=== PATIENT | female | born 1950 | race African-American/Black ===

== ENCOUNTER → 2017-02-04 | Outpatient (CLI) | payer MEDICARE, MEDICAID | LOC: YCFC.O 12:30 | PROVIDERS: ATTEND Anesthesiology Pain Medicine | DX: Z79.891 Long term (current) use of opiate analgesic (principal) ==

== ENCOUNTER 2017-07-30 05:33 | Inpatient (IN) | payer MEDICARE, MEDICAID ==
--- NOTE | 2017-07-29 11:26 | HP ---
CHIEF COMPLAINT: Right knee pain. HISTORY OF PRESENT ILLNESS: Ms. Green is a 67-year-old female with a history of right knee pain that has been going on for years. She has had multiple injections of both steroid and Synvisc and oral medicine, however, has failed to gain relief. Because of her ongoing pain and failure of relief with conservative measures, she has requested operative intervention. After discussing the risks, benefits and alternatives to that, the patient has given informed consent. PAST SURGICAL HISTORY: 1. Tubal ligation. MEDICATIONS: 1. Amlodipine. 2. Buspirone. 3. Clopidogrel. 4. Dexilant. 5. Duloxetine. 6. Gabapentin. 7. Levothyroxine. 8. [place]. ALLERGIES: ASPIRIN. CODE STATUS: Full code. IMMUNIZATIONS: Up to date. SOCIAL HISTORY: The patient does not drink or use any illicit drugs. She does smoke on a daily basis. FAMILY HISTORY: None pertinent to today's complaint. REVIEW OF SYSTEMS: Negative except as indicated in the History of Present Illness. PHYSICAL EXAMINATION: VITAL SIGNS: Blood pressure 154/81. Pulse 80. Height 5'9". Weight 170 pounds. MENTAL STATUS: The patient is awake, alert, and is able to give a good history and participate in the physical. The patient is oriented to person, place and time. SKIN: Normal tone and turgor. HEENT: Normocephalic, atraumatic. Pupils equal, round and reactive. Mucosal membranes are moist. NECK: Normal range of motion. No thyromegaly, no lymphadenopathy. CHEST: Normal respiratory excursion. CARDIAC: Regular rate and rhythm. No murmurs, rubs or gallops. MUSCULOSKELETAL: The bilateral upper extremities show full active range of motion without significant pain. She has intact sensation in the extremities and they are warm and well perfused. She has no deformities. Strength is 5/5. The left lower extremity shows pain along the medial and lateral borders of the knee. She maintains full range of motion of the hip and range of motion of the knee is from full extension with flexion to about 120 degrees with crepitus throughout. The right side shows similar findings with severe pain to palpation. She has intact sensation throughout. It is warm and well perfused. Strength is 5/5. She has crepitus throughout her range of motion from full extension to about 120 degrees. IMAGING: X-rays show advanced arthritis. ASSESSMENT: 1. Osteoarthritis. PLAN: The plan at this point is for total knee arthroplasty. We have discussed the risks, benefits, and alternatives to that and the patient has given informed consent. #[id number] [facility]
[2017-07-30] MEDS ORDERED: LACTATED RINGERS 1,000 ML ONE ×3 (07:32→13:23)
[2017-07-30] MEDS ORDERED: TRANEXAMIC ACID 1,000 MG/10 ML VIAL ONE ×2 (07:32→07:50)
[2017-07-30] MEDS ORDERED: SODIUM CHL 0.9% 100ML MINI-BAG 100 ML IVPB ONE (07:32)
[2017-07-30] MEDS ORDERED: VANCOMYCIN HCL INJ 1,000 MG VIAL IVPB ONE ×2 (07:32→19:38)
[2017-07-30] MEDS ORDERED: ceFAZolin SODIUM 1 GM VIAL ONE ×2 (07:32→08:33)
[2017-07-30] MEDS ORDERED: SODIUM CHLORIDE 0.9% 250ML 250 ML ONE ×2 (07:33→19:36)
[2017-07-30] MEDS ORDERED: SODIUM CHLORIDE 0.9% 100ML 100 ML IVPB ONE (07:50)
[2017-07-30] MEDS ORDERED: LIDOCAINE 2 % GEL 5 ML TUBE TOP ONE (08:49)
[2017-07-30] MEDS ORDERED: PROMETHAZINE HCL INJ 12.5 MG in SODIUM CHLORIDE 0.9% 50ML 50 ML IVPB PRN (09:03)
[2017-07-30] MEDS ORDERED: TEMAZEPAM 15 MG CAP PO PRN (09:03)
[2017-07-30] MEDS ORDERED: ONDANSETRON INJ 4 MG/2 ML VIAL IV PRN (09:03)
[2017-07-30] MEDS ORDERED: TRANEXAMIC ACID INJ 1,000 MG in SODIUM CHLORIDE 0.9% 100ML 100 ML IVPB ONE (09:03)
[2017-07-30] MEDS ORDERED: SODIUM CHLORIDE 0.9% (FLUSH) 10 ML SYG IV PRN (09:03)
[2017-07-30] MEDS ORDERED: ACETAMINOPHEN 500 MG TAB PO PRN (09:03)
[2017-07-30] MEDS ORDERED: NALOXONE HCL INJ 0.4 MG/ML VIAL IV PRN (09:03)
[2017-07-30] MEDS ORDERED: PROMETHAZINE HCL INJ 25 MG in SODIUM CHLORIDE 0.9% 50ML 50 ML IVPB PRN (09:03)
[2017-07-30] MEDS ORDERED: BENZOCAINE-MENTH LOZ (CEPACOL) 1 EA LOZ MT PRN (09:03)
[2017-07-30] MEDS ORDERED: BISACODYL SUPPOSITORY 10 MG PR PRN (09:03)
[2017-07-30] MEDS ORDERED: MORPHINE SULFATE INJ 10 MG/ML VIAL IV PRN (09:03)
[2017-07-30] MEDS ORDERED: ACETAMINOPHEN 325 MG TAB PO PRN (09:03)
[2017-07-30] MEDS ORDERED: ZOLPIDEM TARTRATE 5 MG TAB PO PRN (09:03)
[2017-07-30] MEDS ORDERED: MAGNESIUM HYDROXIDE 30 ML UD PO PRN (09:03)
[2017-07-30] MEDS ORDERED: ALUMINUM & MAGNESIUM HYDROXIDE 30 ML UD PO PRN (09:03)
[2017-07-30] MEDS ORDERED: MORPHINE PCA 1 MG/ML 100 ML BAG IVPB SCH (09:30)
[2017-07-30] MEDS: VANCOMYCIN HCL INJ 1,000 MG VIAL IVPB ONE ×3 (09:45→11:40)
[2017-07-30] MEDS: ceFAZolin SODIUM 1 GM VIAL ONE ×2 (10:36→11:40)
[2017-07-30] MEDS: BUPIVACAINE 0.25% W/EPI 50 ML VIAL INJ ONE ×2 (10:37→11:48)
[2017-07-30] MEDS ORDERED: fentaNYL CITRATE INJ 50 MCG/ML AMP ONE ×2 (11:35→11:55)
[2017-07-30] MEDS ORDERED: MORPHINE PCA 1 MG/ML 100 ML BAG IVPB ONE (12:12)
[2017-07-30] MEDS ORDERED: MORPHINE SULFATE INJ 10 MG/ML VIAL ONE (13:19)
--- NOTE | 2017-07-30 16:15 | PCM.CORE ---
Physician DVT/VTE - Prophylaxis Currently: Patient already on anticoagulation therapy - Nurse DVT Assessment & Total Each Risk Factor Represents 5 Points: Elective Arthtroplasty Each Risk Factor Represents 2 Points: Age 60-74 DVT Assessment Score: 7 - 5 or more Very High Risk Treatments: Early Ambulation *, Sequential Compression Device Pharmacological: Enoxaparin 30mg SQ BID
[2017-07-30] MEDS: IV SET AND CAP CHANGE INJ INJ SCH (17:08)
[2017-07-30] MEDS ORDERED: busPIRone HCL 5 MG TAB ONE ×2 (17:12→19:37)
--- NOTE | 2017-07-30 17:20 | CONS ---
SUPERVISING PHYSICIAN: Jose Roberto Carrasco MD . REASON FOR CONSULTATION: Total right knee arthroplasty. HISTORY OF PRESENT ILLNESS: Ms. Green is a 67-year-old -[place] female with a longstanding history of right knee pain that has been occurring for multiple years. She has had several attempts at conservative measures treatment including steroid injections, Synvisc, oral medications and physical therapy but has failed to gain any relief. Due to the worsening pain and failure of treatment and conservative measures, the patient requested surgical intervention. The patient had an elective right arthroplasty performed today by Dr. Jeff Kidd. The patient is seen in the postoperative state. The patient was stable and in no distress. PAST MEDICAL HISTORY: 1. Cardiovascular accident approximately 15 years previously with left-sided lower extremity weakness and some mild aphasia. 2. Dementia. 3. Hypertension. 4. Anxiety. 5. Hypothyroidism. 6. Hepatitis C, undergoing current treatment for the last 2 months. 7. Gastroesophageal reflux disease. PAST SURGICAL HISTORY: 1. Tubal ligation. 2. Cholecystectomy. MEDICATIONS: 1. Trazodone 150 mg at bedtime. 2. Allopurinol 100 mg at bedtime. 3. Gabapentin 600 mg b.i.d. 4. Duloxetine 60 mg daily. 5. Dexilant 60 mg daily. 6. Amlodipine 10 mg daily. 7. Plavix 75 mg daily. 8. Buspirone 15 mg q.i.d. 9. Synthroid 25 mcg daily. ALLERGIES: ASPIRIN. SOCIAL HISTORY: The patient is disable. She is and lives in [place], [place]. She does smoke approximately half pack cigarettes per day and has done so for well over 40 years. She denies alcohol or any illicit drug use.. FAMILY HISTORY: Remarkable for a brother who had prostate cancer and recently . Several members with hypertension, previous strokes. REVIEW OF SYSTEMS: CONSTITUTIONAL: Denies any weight loss or unintentional weight gain, malaise or fatigue. HEENT: Denies headaches, sore throats, nasal congestion. RESPIRATORY: Denies shortness of breath, cough, wheezing. CARDIOVASCULAR: Denies chest pain, palpitations or syncopal episodes. GASTROINTESTINAL: Denies abdominal pain, nausea, vomiting, diarrhea or constipation or any bowel habit changes. GENITOURINARY: Denies dysuria, hematuria, polyuria, nocturia or any other urinary symptoms. MUSCULOSKELETAL: As noted in history of present illness along with residual left-sided lower extremity weakness from previous CVA, 15 years previous. NEUROLOGICAL: As noted above, left lower extremity weakness due to previous stroke. No recent history of seizures, vision changes, headaches or syncopal episodes. PHYSICAL EXAMINATION: VITAL SIGNS: Temperature 98.7. Blood pressure 153/88. Pulse 70. Respirations 20, saturation 100% on nasal cannula at 3 liters at rest. Admission weight is 90.7 kilogram. GENERAL: The patient is resting in bed having just finished her CPM, appears to be comfortable and in no distress. She is alert and oriented. HEENT: Tympanic membranes are clear bilaterally. Oropharynx is pink and moist without any lesions. There are no lesions. NECK: Supple, non-tender with full range of motion. No jugular venous distention. CHEST: Lungs are clear to auscultation bilaterally without any rhonchi, rales, or wheezes. HEART: Regular rate and rhythm without appreciable murmurs, rubs, or gallops. ABDOMEN: Soft, non-tender, positive bowel sounds. EXTREMITIES: Right knee as a dressing in place. Pulses distally are strong with capillary refill brisk. NEUROLOGIC: She is alert and oriented x 3. Facial features were symmetrical. Extraocular movements were within normal limits. No nystagmus. She does have a mild aphasia that is at baseline status according to the . Cranial nerves II through XII are grossly intact. LABORATORY: Postoperative hemoglobin and hematocrit pending. MICROBIOLOGY: MRSA culture preliminary shows a gram positive cocci. ASSESSMENT: 1. Immediate postoperative day #0 for elective right total knee arthroplasty performed by Dr. Kidd, orthopedic surgeon. 2. Hypertension. 3. Previous in approximately 2002. 4. Dementia secondary to stroke. 5. Anxiety on medication. 7. Hypothyroidism on supplementation. 8. Hepatitis C, currently under treatment approximately 2 months into treatment plan. Her primary doctor is Dr. Mcnamara in [place], [place]. 9. Gastroesophageal reflux disease. PLAN: I will follow the patient as she progresses through her physical therapy and recovery effort under the direction of orthopedic services and physical therapy department. Will resume home medications once those have been updated and verified. She is under DVT prophylaxis as per postoperative protocol. She is being encouraged to utilize the incentive spirometry pending postoperative atelectasis as well as exercise Lowe extremities to prevent DVT. Anticipate discharge in the next 2 to 3 days as she progresses and meets her goals. Discharge planning is that they will utilize [facility] in [place], [place] once discharged. Until discharge, we will continue to monitor closely and treat appropriately. #[id number] [facility]
[2017-07-30] MEDS: NICOTINE PATCH 14 MG TD SCH (17:24)
[2017-07-30] MEDS: NON-FORMULARY MEDICATION 1 EA MIS (Buspirone Hcl [Buspirone Hcl] 15 MG) PO SCH ×2 (17:25→20:53)
[2017-07-30] MEDS ORDERED: ceFAZolin SODIUM 2 GRAMS PREMI 50 ML IVPB ONE ×2 (18:02→19:37)
[2017-07-30] MEDS: HYDROcodone 5MG/APAP 325MG 1 EA TAB PO PRN (18:05)
[2017-07-30] MEDS: ceFAZolin SODIUM 2 GRAMS PREMI 2 GM in PREMIX BAG 1 BAG IVPB SCH (18:11)
[2017-07-30] MEDS: DEX 5% W/NACL 0.45% 1000ML 1,000 ML IVS PRN (19:22)
[2017-07-30] MEDS ORDERED: GABAPENTIN 300 MG CAP ONE (19:36)
[2017-07-30] MEDS ORDERED: ENOXAPARIN SODIUM 30 MG/0.3 ML SYG SUBCU ONE (19:37)
[2017-07-30] MEDS: traMADol HCL 50 MG TAB PO PRN (19:40)
[2017-07-30] MEDS: CYCLOBENZAPRINE HCL 10 MG TAB PO PRN (19:41)
[2017-07-30] MEDS: DOCUSATE CALCIUM 240 MG CAP PO SCH (20:53)
[2017-07-30] MEDS: VANCOMYCIN HCL INJ 1,000 MG in SODIUM CHLORIDE 0.9% 250ML 250 ML IVPB SCH (20:55)
[2017-07-30] MEDS: ALLOPURINOL 100 MG TAB PO SCH (20:55)
[2017-07-30] MEDS ORDERED: NON-FORMULARY MEDICATION 1 EA MIS (Gabapentin [Gabapentin] 600 MG) PO SCH (21:00)
[2017-07-30] MEDS: MORPHINE SULFATE INJ 10 MG/ML VIAL IM PRN (21:50)
[2017-07-31] MEDS: ENOXAPARIN SODIUM 30 MG/0.3 ML SYG SUBCU SCH ×2 (00:44→14:55)
[2017-07-31] MEDS: ceFAZolin SODIUM 2 GRAMS PREMI 2 GM in PREMIX BAG 1 BAG IVPB SCH ×2 (02:49→11:41)
[2017-07-31] MEDS: traMADol HCL 50 MG TAB PO PRN (06:02)
[2017-07-31] MEDS: CYCLOBENZAPRINE HCL 10 MG TAB PO PRN ×2 (06:03→19:10)
[2017-07-31] MEDS ORDERED: SODIUM CHLORIDE 0.9% 250ML 250 ML ONE (08:01)
[2017-07-31] MEDS ORDERED: VANCOMYCIN HCL INJ 1,000 MG VIAL IVPB ONE (08:03)
[2017-07-31] MEDS: busPIRone HCL 5 MG TAB PO SCH ×4 (08:24→20:42)
[2017-07-31] MEDS: GABAPENTIN 300 MG CAP PO SCH ×3 (08:24→20:42)
[2017-07-31] MEDS: DULoxetine HCL 30 MG CAP PO SCH (08:27)
[2017-07-31] MEDS: CELECOXIB 100 MG CAP PO SCH (08:27)
[2017-07-31] MEDS: MAGNESIUM OXIDE 400 MG TAB PO SCH (08:28)
[2017-07-31] MEDS: LEVOTHYROXINE SODIUM 0.025 MG TAB PO SCH (08:28)
[2017-07-31] MEDS: HYDROcodone 5MG/APAP 325MG 1 EA TAB PO PRN (08:29)
[2017-07-31] MEDS: VANCOMYCIN HCL INJ 1,000 MG in SODIUM CHLORIDE 0.9% 250ML 250 ML IVPB SCH (08:30)
--- NOTE | 2017-07-31 08:47 | PN ---
DATE: 07/30/17 POSTOPERATIVE CHECK SUBJECTIVE: Ms. Green is doing okay. She is having a little bit of trouble with pain control right now. She was unable to get a spinal. OBJECTIVE: Afebrile. Vital signs stable. Dressing is clean, dry and intact. ASSESSMENT: Status post total knee arthroplasty. PLAN: She will be weight-bearing as tolerated on postoperative day 1. I have encouraged her to utilize her [employer] PROGRAMMER and utilize pain medicine as provided during more intense episodes of pain. #[id number] [facility]
--- NOTE | 2017-07-31 08:52 | OP ---
DATE OF PROCEDURE: 07/30/17 PREOPERATIVE DIAGNOSIS: 1. Right knee osteoarthritis. POSTOPERATIVE DIAGNOSIS: 1. Right knee osteoarthritis. PROCEDURE: 1. Right total knee arthroplasty. SURGEON: Jeff Kidd MD. PROFESSOR OF MUSICOLOGY: Jeffrey Wu CST, SA-C. ANESTHESIA: General. COMPLICATIONS: None. FINDINGS: Severe arthritis. INDICATION: Ms. Green has a long history of knee pain. She has been given multiple injections by other physicians. She has had no relief with that. Because of that, she has requested operative intervention. After discussing the risks, benefits and alternatives to that, the patient has given informed consent for total knee arthroplasty. PROCEDURE: The patient was brought to the Operating Room and placed in supine position. General anesthesia was induced and the patient's leg was sterilely prepped and draped. Following prepping and draping, the distal femur was exposed and using an intramedullary guide, the distal femoral cut was made. The appropriate sized cutting block was measured, pinned into place, and the anterior, posterior, and chamfer cuts were made. The ACL was transected and the tibia was subluxed. Both the medial and lateral menisci were removed. An intramedullary guide was used to make the proximal tibial cut. The appropriate sized base plate was placed and a trial polyethylene was placed. The trial femur was placed, the knee was reduced, and the knee was taken through a range of motion. The knee was stable in anterior, posterior, varus and valgus stress. The patella tracked anatomically without evidence of subluxation or dislocation. After trialing, the trial components were removed and the bony surfaces were thoroughly irrigated with saline. Following irrigation, the surfaces were dried and the final components were cemented into place. The excess cement was removed and the remaining cement was allowed to cure. The knee was again taken through a range of motion to confirm stability. The wound was then irrigated with saline and closure was performed using PDS to approximate the arthrotomy followed by closure of the subcutaneous tissues with a combination of running and interrupted Monocryl sutures. Sterile dressing was placed. The patient was awoken from anesthesia and taken to Recovery. POSTOPERATIVE INSTRUCTIONS: The patient will be weight-bearing as tolerated on postoperative day 1. COMPONENTS: [employer] Triathlon knee, size 4 femur, size 4 tibia, 9 mm insert. #[id number] [facility]
[2017-07-31] MEDS: amLODIPine BESYLATE 5 MG TAB PO SCH (08:53)
[2017-07-31] MEDS: CLOPIDOGREL 75 MG TAB PO SCH (08:54)
[2017-07-31] MEDS ORDERED: NON-FORMULARY MEDICATION 1 EA MIS (Dexlansoprazole [Dexilant] 60 MG) PO SCH (09:00)
[2017-07-31] MEDS ORDERED: PROPOFOL 200 MG/20 ML VIAL IV ONE (10:00)
[2017-07-31] MEDS ORDERED: LABETALOL INJ 5 MG/ML VIAL IV ONE (10:00)
[2017-07-31] MEDS: HYDROcodone 10MG/APAP 325MG 1 EA TAB PO PRN ×2 (10:07→19:10)
[2017-07-31] MEDS: PANTOPRAZOLE SODIUM TAB 40 MG PO SCH (10:38)
--- NOTE | 2017-07-31 10:55 | RAD ---
EXAM DESCRIPTION: Knee,Right 2 or More Views CLINICAL HISTORY: 67 years, Female, TKA COMPARISON: None TECHNIQUE: 2 views of the right knee FINDINGS: No fracture or dislocation. Total right knee arthroplasty is noted with air in the joint space and soft tissues. There is vascular calcification. There is anatomic hardware alignment. Lateral view shows normal position of the patella. Mild superior patellar enthesopathy. Suprapatellar air in the joint is seen and there may be a small amount of joint fluid is well. IMPRESSION: Total right knee arthroplasty. No complicating fracture. Electronically signed by: Mt Landis MD 07/31/2017 10:53 AM CDT
[2017-07-31] MEDS ORDERED: ceFAZolin SODIUM 2 GRAMS PREMI 50 ML IVPB ONE (11:30)
--- NOTE | 2017-07-31 14:06 | PN ---
SUPERVISING PHYSICIAN: Tony Reveles MD DATE: 07/31/17 SUBJECTIVE: The patient has had some difficulty with good control of her pain. She did not get good response from Astramorph last night and has required multiple different pain managements this morning. She was changed to Ulysses 10/ 325 which seems to be helping. She has had no chest pain, nausea or vomiting. She remains afebrile. OBJECTIVE: VITAL SIGNS: Temperature 98.6. Pulse 66. Blood pressure 129/86. Respirations 20. Saturation 97% on nasal cannula at 2 liters at rest. I&Os show positive balance of 95 with 1040 in, 975 out. Weight 90.7 kg. CHEST: Lungs clear to auscultation, just slightly diminished towards the bases. HEART: Regular rate and rhythm. ABDOMEN: Soft, nontender. Positive bowel sounds. EXTREMITIES: Right knee has bulky dressing in place with Bert bandage. Distal pulses are strong with brisk capillary refill. NEUROLOGIC: Alert and oriented times three. LABORATORY: Postoperative hemoglobin and hematocrit shows hemoglobin 13.9 and hematocrit 41.2. ASSESSMENT: 1. Postoperative day #1 for elective right total knee arthroplasty having failed to respond to conservative treatment in the outpatient setting with surgery being performed by Dr. Kidd, orthopedic surgeon. 2. Hypertension, on multiple medications. 3. Previous cerebrovascular accident in approximately 2002. 4. Dementia secondary to stroke. 5. Anxiety, on medication. 7. Hypothyroidism, on supplementation. 8. Hepatitis C, currently under treatment approximately 2 months into treatment plan. Her primary doctor is Dr. Mcnamara in [place], [place]. 9. Gastroesophageal reflux disease. PLAN: We will continue to follow the patient as she progresses in her physical therapy efforts under the direction of physical therapy and orthopedic services. We will monitor her blood pressure closely and help assist in better pain control as needed. She is again encouraged to do her deep breathing exercises to prevent any atelectasis or postoperative complications. We reminded her she can utilize her pain management in efforts to better control her pain prior to physical therapy to assist in her ability to perform her efforts while in physical therapy. The patient continues to voice they will utilize [facility] in [place], [place], once discharged. The patient again is having difficulty with good pain control which may inhibit her progressing through physical therapy as expected. We will continue to monitor this closely. Until the patient has met her physical therapy goals, we will continue to monitor and treat appropriately. #[id number] [facility]
[2017-07-31] MEDS: NICOTINE PATCH 14 MG TD SCH (16:55)
[2017-07-31] MEDS: DEX 5% W/NACL 0.45% 1000ML 1,000 ML IVS PRN (19:05)
[2017-07-31] MEDS: ALLOPURINOL 100 MG TAB PO SCH (20:42)
[2017-07-31] MEDS: DOCUSATE CALCIUM 240 MG CAP PO SCH (20:42)
[2017-08-01] MEDS: ENOXAPARIN SODIUM 30 MG/0.3 ML SYG SUBCU SCH ×2 (01:18→12:37)
[2017-08-01] MEDS: HYDROcodone 10MG/APAP 325MG 1 EA TAB PO PRN ×4 (05:39→20:15)
[2017-08-01] MEDS: PANTOPRAZOLE SODIUM TAB 40 MG PO SCH (06:28)
[2017-08-01] MEDS: LEVOTHYROXINE SODIUM 0.025 MG TAB PO SCH (06:28)
[2017-08-01] MEDS: CELECOXIB 100 MG CAP PO SCH (07:38)
[2017-08-01] MEDS: busPIRone HCL 5 MG TAB PO SCH ×4 (08:19→20:44)
[2017-08-01] MEDS: GABAPENTIN 300 MG CAP PO SCH ×3 (08:19→20:44)
[2017-08-01] MEDS: amLODIPine BESYLATE 5 MG TAB PO SCH (08:19)
[2017-08-01] MEDS: DULoxetine HCL 30 MG CAP PO SCH (08:19)
[2017-08-01] MEDS: MAGNESIUM OXIDE 400 MG TAB PO SCH (08:19)
[2017-08-01] MEDS: CLOPIDOGREL 75 MG TAB PO SCH (08:19)
[2017-08-01] MEDS: SODIUM CHLORIDE 0.9% (FLUSH) 10 ML SYG IV SCH ×2 (08:20→20:44)
[2017-08-01] MEDS: MORPHINE SULFATE INJ 10 MG/ML VIAL IM PRN (10:26)
--- NOTE | 2017-08-01 13:05 | PN ---
DATE: 08/01/17 SUBJECTIVE: Ms. Green is doing much better today. She is sitting up, eating and without significant pain. OBJECTIVE: Afebrile. Vital signs stable. Wound is clean. There are no signs or symptoms of infection. ASSESSMENT: Status post total knee arthroplasty. PLAN: The patient plan at this point is to continue with weight-bearing as tolerated and increasing range of motion as tolerated. #[id number] [facility]
--- NOTE | 2017-08-01 15:36 | PN ---
DATE: 08/01/17 SUBJECTIVE: The patient is lying in the bed and immediately complained of significant pain and requested additional pain medications. She is able to ambulate with physical therapy assistance and the use of a walker. Of significance is that her brother has recently with his being tomorrow. The patient's appetite is fairly good. OBJECTIVE: VITAL SIGNS: Afebrile. Pulse 97. Blood pressure 155/80. Pulse oximetry 93% on room air. LUNGS: Clear. HEART: Regular. ABDOMEN: Soft. EXTREMITIES: The patient appears to be in some discomfort in her knee and physical therapy is approach with her ongoing rehabilitation. The patient is observed ambulating down the [place]cfadden and appears to be in minimal discomfort at the time of the examination. MICROBIOLOGY: MRSA surveillance culture is negative and yesterday's hemoglobin was 13.9, down from 14.9 preoperatively. PLAN: Because of the brother's plans for tomorrow, the patient will be given an order to allow her to have a pass for a few hours tomorrow so that the family can accompany her with wheelchair and full support to the in [place]. This will need to be reviewed with Dr. Kidd before final permission to leave is granted. The patient will continue rehabilitation as well as an ongoing prophylactic program to prevent DVT as well as pain control while here awaiting her improvement to the point where she will safely be able to be returned home. #[id number] [facility]
[2017-08-01] MEDS: NICOTINE PATCH 14 MG TD SCH (16:51)
[2017-08-01] MEDS: traMADol HCL 50 MG TAB PO PRN (17:30)
[2017-08-01] MEDS: CYCLOBENZAPRINE HCL 10 MG TAB PO PRN (20:15)
[2017-08-01] MEDS: ALLOPURINOL 100 MG TAB PO SCH (20:44)
[2017-08-01] MEDS: DOCUSATE CALCIUM 240 MG CAP PO SCH (20:44)
[2017-08-02] MEDS: ENOXAPARIN SODIUM 30 MG/0.3 ML SYG SUBCU SCH ×2 (00:39→12:36)
[2017-08-02] MEDS: PANTOPRAZOLE SODIUM TAB 40 MG PO SCH (06:16)
[2017-08-02] MEDS: LEVOTHYROXINE SODIUM 0.025 MG TAB PO SCH (06:16)
[2017-08-02] MEDS: HYDROcodone 10MG/APAP 325MG 1 EA TAB PO PRN ×3 (06:16→21:31)
[2017-08-02] MEDS: CELECOXIB 100 MG CAP PO SCH (07:42)
--- NOTE | 2017-08-02 07:57 | PN ---
DATE: 08/02/17 SUBJECTIVE: Ms. Green is resting comfortably and is without complaint. OBJECTIVE: Afebrile. Vital signs stable. Wound is clean. There are no signs or symptoms of infection. ASSESSMENT: Status post total knee arthroplasty. PLAN: The plan at this point is to continue with weight-bearing as tolerated as well as range of motion increasing as tolerated. [facility][id number] [facility]
[2017-08-02] MEDS: SODIUM CHLORIDE 0.9% (FLUSH) 10 ML SYG IV SCH ×2 (08:03→21:29)
[2017-08-02] MEDS: CLOPIDOGREL 75 MG TAB PO SCH (08:03)
[2017-08-02] MEDS: amLODIPine BESYLATE 5 MG TAB PO SCH (08:03)
[2017-08-02] MEDS: DULoxetine HCL 30 MG CAP PO SCH (08:04)
[2017-08-02] MEDS: GABAPENTIN 300 MG CAP PO SCH ×3 (08:04→21:28)
[2017-08-02] MEDS: MAGNESIUM OXIDE 400 MG TAB PO SCH (08:04)
[2017-08-02] MEDS: busPIRone HCL 5 MG TAB PO SCH ×4 (08:04→21:27)
[2017-08-02] MEDS: KETOROLAC TROMETHAMINE INJ 30 MG/ML VIAL IV SCH ×3 (09:27→21:30)
[2017-08-02] MEDS: MORPHINE SULFATE INJ 10 MG/ML VIAL IM PRN (09:39)
[2017-08-02] MEDS: IV SET AND CAP CHANGE INJ INJ SCH (09:40)
[2017-08-02] MEDS ORDERED: ONDANSETRON 4 MG TAB PO PRN (10:33)
--- NOTE | 2017-08-02 13:47 | PN ---
DATE: 08/02/17 SUBJECTIVE: The patient is ambulating with physical therapy in the hallways. She was in so much pain earlier today that she has cancelled her attempt to be present at her brother's in [place] later today. For this reason , to her pain program is added Toradol 15 mg IV q.8h. on a regular basis for at least 7 doses and will observe its effect. She is very much willing to give this a try to see if a couple of days from now she will be improved in her general pain relief. OBJECTIVE: VITAL SIGNS: See vitals. LUNGS: Clear. HEART: Regular. ABDOMEN: Soft. A bowel movement earlier today noted. Weight is stable. ASSESSMENT: 1. Postoperative day 3 for elective right total knee arthroplasty having failed to respond to outpatient conservative therapy and requiring surgical intervention to assist with symptom control. Surgery performed by Dr. Kidd, orthopedic surgeon. 2. History of hypertension. 3. Previous cerebrovascular accident in 2002 with minimal residual. 4. History of dementia secondary to the cerebrovascular accident. 5. Chronic anxiety on medication. 6. History of hypothyroidism on supplementation. 7. History of hepatitis C, seeing Dr. Mcnamara in [place], [place], and family currently being unable to find out the name of the medicine or bring in pills from home for its use, hopefully will be able to do so soon so that the medicine can be continued. 8. History of gastroesophageal reflux disease. 9. History of significant pain state post surgery with difficulty tolerating the pain with attention being paid to it. PLAN: We will continue with more aggressive pain management with the addition of Toradol IV for the next 7 doses. We will reevaluate with physical therapy's assistance tomorrow and consider Swing Bed admission tomorrow so that the patient will be able to continue to get stronger until the point where she can safely return home. Social Service is assisting with organizing her eventual discharge plans. Observe closely today and reevaluate in the morning. #[id number] [facility]
[2017-08-02] MEDS: NICOTINE PATCH 14 MG TD SCH (17:36)
[2017-08-02] MEDS ORDERED: MAGNESIUM HYDROXIDE 30 ML UD PO ONE (21:00)
[2017-08-02] MEDS ORDERED: BISACODYL SUPPOSITORY 10 MG PR ONE (21:00)
[2017-08-02] MEDS: DOCUSATE CALCIUM 240 MG CAP PO SCH (21:28)
[2017-08-02] MEDS: ALLOPURINOL 100 MG TAB PO SCH (21:30)
[2017-08-02] MEDS: CYCLOBENZAPRINE HCL 10 MG TAB PO PRN (23:07)
[2017-08-03] MEDS: ENOXAPARIN SODIUM 30 MG/0.3 ML SYG SUBCU SCH ×2 (01:00→13:06)
[2017-08-03] MEDS: KETOROLAC TROMETHAMINE INJ 30 MG/ML VIAL IV SCH ×3 (03:14→15:07)
[2017-08-03] MEDS: LEVOTHYROXINE SODIUM 0.025 MG TAB PO SCH (06:19)
[2017-08-03] MEDS: PANTOPRAZOLE SODIUM TAB 40 MG PO SCH (06:19)
[2017-08-03] MEDS: HYDROcodone 10MG/APAP 325MG 1 EA TAB PO PRN ×2 (06:30→10:56)
[2017-08-03] MEDS: CELECOXIB 100 MG CAP PO SCH (08:24)
[2017-08-03] MEDS: amLODIPine BESYLATE 5 MG TAB PO SCH (09:06)
[2017-08-03] MEDS: DULoxetine HCL 30 MG CAP PO SCH (09:06)
[2017-08-03] MEDS: CLOPIDOGREL 75 MG TAB PO SCH (09:07)
[2017-08-03] MEDS: busPIRone HCL 5 MG TAB PO SCH ×2 (09:07→13:06)
[2017-08-03] MEDS: MAGNESIUM OXIDE 400 MG TAB PO SCH (09:07)
[2017-08-03] MEDS: GABAPENTIN 300 MG CAP PO SCH ×2 (09:07→15:06)
[2017-08-03] MEDS: SODIUM CHLORIDE 0.9% (FLUSH) 10 ML SYG IV SCH (09:08)
[2017-08-03] MEDS: CYCLOBENZAPRINE HCL 10 MG TAB PO PRN (10:56)
[2017-08-03 15:31] VITALS: BP 116/68; TEMP 98.8; O2SAT 93
--- NOTE | 2017-08-04 11:47 | DS ---
SUPERVISING PHYSICIAN: Tony Reveles M.D. DISCHARGE DIAGNOSIS: 1. Postoperative day 4 for elective right total knee arthroplasty having failed to respond to outpatient conservative treatment measures requiring surgical intervention to assist with symptom control with surgery being performed by Dr. Jeff Kidd, orthopedic surgeon. 2. History of hypertension. 3. Previous cerebrovascular accident in 2002 with minimal residual effects. 4. History of dementia secondary to #3. 5. Chronic anxiety on medication. 6. History of hypothyroidism on supplementation. 7. History of hepatitis C under current treatment of Dr. Mcnamara in [place], [place] for the last 2 months. 8. History of gastroesophageal reflux disease. 9. History of significant pain postoperatively requiring ongoing management prior to discharge with NSAIDs and Blackstone with the patient showing good response. REASON FOR HOSPITALIZATION: Ms. Green is a 67 year-old female with a longstanding history of right knee pain that had been occurring over multiple years. She had had several attempts of conservative measure treatments, including steroid injections, Synvisc and oral medications along with physical therapy all of which had failed to gain any significant relief. Due to the worsening pain and the failure of treatment and conservative measures , she requested surgical intervention for pain control. The patient had elective right knee arthroplasty that was performed on 07/30/[address] Jeff Kidd. She was followed in the postoperative state and was able to participate well with her physical therapy. LABORATORY STUDIES: Postoperative H&H 13.9, hematocrit 41.2. HOSPITAL COURSE: Ms. Green was admitted for an elective right knee arthroplasty as noted above on 07/30/17 with surgery being performed by Dr. Jeff Kidd. The patient had no complications and tolerated surgery well. She was followed in the immediate postoperative state. She had some issues with pain control which was assisted with additional increasing of Blackstone as well as augmentation with Toradol which worked very well. The patient had progressed through her physical therapy but continued to show a need for ongoing physical therapy requirements, so it was suggested by Physical Therapy services that she continue with outpatient treatment through Swing Bed admission for ongoing physical therapy. PLAN: Ms. Cinthia Green was discharged on 08/03/17 and admitted to Swing Bed for ongoing physical therapy on 08/03/17. Diet at discharge was regular diet as tolerated. Activity is per Physical Therapy to walk with a walker only. Wound care and wound management was through postoperative management as directed by Dr. Jeff Kidd. New medications at discharge included: 1. Xarelto 10 mg daily for 7 days, total of 12. 2. Celebrex 100 mg daily at breakfast. 3. Flexeril 10 mg every 8 hours as needed for muscle spasms. 4. Blackstone 10/325, one every 4 hours as needed for pain. 5. Nicotine patch 14 mg daily. Condition at discharge was stable and improved. [facility][id number] [facility]
== END 2017-08-03 15:35 | disposition swing bed (61) | DRG 470 ==
LOC: AMB 05:33 → MS 14:05
PROVIDERS: ADMIT Orthopaedic Surgery; ATTEND Nurse Practitioner Family
PROC: 0SRC0J9 Replacement of Right Knee Joint with Synthetic Substitute, Cemented, Open Approach (ICD-10-PCS; principal; 2017-07-30 10:03)
DX: M17.11 Unilateral primary osteoarthritis, right knee (principal); I10 Essential (primary) hypertension; F03.90 Unspecified dementia, unspecified severity, without behavioral disturbance, psychotic disturbance, mood disturbance, and anxiety; F41.9 Anxiety disorder, unspecified; E03.9 Hypothyroidism, unspecified; B19.20 Unspecified viral hepatitis C without hepatic coma; K21.9 Gastro-esophageal reflux disease without esophagitis; Z88.6 Allergy status to analgesic agent; G89.18 Other acute postprocedural pain; F17.210 Nicotine dependence, cigarettes, uncomplicated; I69.320 Aphasia following cerebral infarction; I69.344 Monoplegia of lower limb following cerebral infarction affecting left non-dominant side

== ENCOUNTER 2017-08-03 15:35 | Inpatient (IN) | payer MEDICARE, MEDICAID ==
[2017-08-03] MEDS ORDERED: ACETAMINOPHEN 500 MG TAB PO PRN (16:41)
[2017-08-03] MEDS ORDERED: TEMAZEPAM 15 MG CAP PO PRN (16:41)
[2017-08-03] MEDS ORDERED: HYDROcodone 5MG/APAP 325MG 1 EA TAB PO PRN (16:41)
[2017-08-03] MEDS ORDERED: SODIUM PHOS/BIPHOS ENEMA ADULT 133 ML BTTL PR PRN (16:41)
[2017-08-03] MEDS ORDERED: MAGNESIUM HYDROXIDE 30 ML UD PO PRN (16:41)
[2017-08-03] MEDS: NICOTINE PATCH 14 MG TD SCH (17:47)
[2017-08-03] MEDS: HYDROcodone 10MG/APAP 325MG 1 EA TAB PO PRN (17:48)
[2017-08-03] MEDS ORDERED: GABAPENTIN 300 MG CAP ONE (19:44)
[2017-08-03] MEDS ORDERED: traMADol HCL 50 MG TAB ONE (19:45)
[2017-08-03] MEDS ORDERED: busPIRone HCL 5 MG TAB ONE (19:46)
[2017-08-03] MEDS ORDERED: NON-FORMULARY MEDICATION 1 EA MIS (Trazodone Hcl [Trazodone Hcl] 150 MG) PO SCH (21:00)
[2017-08-03] MEDS ORDERED: NON-FORMULARY MEDICATION 1 EA MIS (Gabapentin [Gabapentin] 600 MG) PO SCH (21:00)
[2017-08-03] MEDS ORDERED: NON-FORMULARY MEDICATION 1 EA MIS (Buspirone Hcl [Buspirone Hcl] 15 MG) PO SCH (21:00)
[2017-08-03] MEDS: ALLOPURINOL 100 MG TAB PO SCH (21:49)
[2017-08-03] MEDS ORDERED: traZODone HCL 50 MG TAB ONE (21:56)
[2017-08-04] MEDS: HYDROcodone 10MG/APAP 325MG 1 EA TAB PO PRN ×3 (02:36→17:59)
[2017-08-04] MEDS ORDERED: DULoxetine HCL 30 MG CAP PO ONE (07:19)
[2017-08-04] MEDS ORDERED: GABAPENTIN 300 MG CAP ONE (07:20)
[2017-08-04] MEDS ORDERED: busPIRone HCL 5 MG TAB ONE (07:21)
[2017-08-04] MEDS ORDERED: amLODIPine BESYLATE 5 MG TAB ONE (07:21)
[2017-08-04] MEDS: CELECOXIB 100 MG CAP PO SCH (07:39)
[2017-08-04] MEDS: DULoxetine HCL 30 MG CAP PO SCH (08:49)
[2017-08-04] MEDS: DOCUSATE SODIUM 100 MG CAP PO SCH (08:50)
[2017-08-04] MEDS: GABAPENTIN 300 MG CAP PO SCH ×3 (08:50→20:39)
[2017-08-04] MEDS: amLODIPine BESYLATE 5 MG TAB PO SCH (08:50)
[2017-08-04] MEDS: LEVOTHYROXINE SODIUM 0.025 MG TAB PO SCH (08:50)
[2017-08-04] MEDS: busPIRone HCL 5 MG TAB PO SCH ×4 (08:50→20:39)
[2017-08-04] MEDS: RIVAROXABAN 10 MG TAB PO SCH (08:51)
[2017-08-04] MEDS: CLOPIDOGREL 75 MG TAB PO SCH (08:51)
[2017-08-04] MEDS: PANTOPRAZOLE SODIUM TAB 40 MG PO SCH (08:53)
[2017-08-04] MEDS: ZEPATIER PO SCH (09:50)
--- NOTE | 2017-08-04 10:30 | PCM.CORE ---
Physician DVT/VTE - Prophylaxis Currently: Patient already on anticoagulation therapy - Nurse DVT Assessment & Total Each Risk Factor Represents 5 Points: Elective Arthtroplasty Each Risk Factor Represents 2 Points: Age 60-74 Each Risk Factor is 1 Point: Obesity (BMI >25) DVT Assessment Score: 8 - 5 or more Very High Risk Treatments: Early Ambulation *, Sequential Compression Device
--- NOTE | 2017-08-04 12:12 | HP ---
SUPERVISING PHYSICIAN: Tony Reveles M.D. HISTORY OF PRESENT ILLNESS: Ms. Green is a 67 year-old female with a longstanding history of right knee pain that had been occurring over multiple years. She had had several attempts of conservative measure treatments, including steroid injections, Synvisc and oral medications along with physical therapy all of which had failed to gain any significant relief. Due to the worsening pain and the failure of treatment and conservative measures , she requested surgical intervention for pain control. The patient had elective right knee arthroplasty that was performed on 07/30/[address] Jeff Kidd. She was followed in the postoperative state and was able to participate well with her physical therapy. PAST MEDICAL HISTORY: 1. Cerebrovascular accident approximately 15 years previously on left side, lower extremity weakness and some mild aphasia. 2. Dementia. 3. Hypertension. 4. Anxiety. 5. Hypothyroidism. 6. Hepatitis C undergoing treatment for the last 2 months. 7. Gastroesophageal reflux disease. PAST SURGICAL HISTORY: 1. As noted above, recent right knee arthroplasty. 2. Tubal ligation. 3. Cholecystectomy. MEDICATIONS: Please refer to the electronic records for an updated list of medications at time of admission to [facility] which included: 1. Trazodone 150 mg at bedtime. 2. Xarelto 10 mg daily. 3. Nicotine patch 1 topically daily. 4. Synthroid 25 mcg daily. 5. [place] 10/325 one every 4 hours as needed for pain. 6. Gabapentin 600 mg t.i.d. 7. Duloxetine 60 mg daily. 8. Dexilant 60 mg daily. 9. Flexeril 10 mg a needed every 8 hours. 10. Plavix 75 mg daily. 11. Celebrex 100 mg daily. 12. Buspirone 15 mg q.i.d. 13. Amlodipine 10 mg daily. 14. Allopurinol 100 mg at bedtime. FAMILY HISTORY: Remarkable for a brother who had prostate cancer and recently with several members with hypertension and previous strokes. SOCIAL HISTORY: The patient is disabled and lives in [place], [place]. She is . She does smoke 1/2 pack of cigarettes per day and has done so for over 40 years. She denies any alcohol or illicit drug use. REVIEW OF SYSTEMS: CONSTITUTIONAL: Denies any weight loss, unintentional weight gain, malaise, fatigue. Just generalized deconditioning as per noted in recent hospitalization. HEENT: Denies any headache, sore throat, nasal congestion. RESPIRATORY: Denies any shortness of breath, cough or wheezing. CARDIOVASCULAR: Denies any chest pains, palpitations or syncopal episodes. GASTROINTESTINAL: Denies any abdominal pains, nausea, vomiting, diarrhea or constipation or any other bowel habit changes. GENITOURINARY: Denies any dysuria, hematuria, polyuria, nocturia or any other urinary symptoms. MUSCULOSKELETAL: As noted above in History of Present Illness. NEUROLOGIC: As noted above, past CVA with left lower extremity weakness due to previous stroke but no recent history of seizures, vision changes, headaches or syncopal episodes. PHYSICAL EXAMINATION: VITAL SIGNS: On admission to [facility], temperature 98.0, pulse 81, blood pressure 116/68, respirations 167, satting 93% on room air. GENERAL: The patient was resting comfortably. Just had physical therapy. Appeared to be in no acute distress. HEENT: Tympanic membranes are clear bilaterally. Oropharynx is pink and moist without any lesions. There was no jugular venous distention. NECK: Supple, non-tender with full range of motion. CHEST: Lungs are clear to auscultation bilaterally without any rhonchi, wheezing or rales. HEART: Regular rate and rhythm without appreciable murmurs, gallops, or rubs. ABDOMEN: Soft, non-tender. Positive bowel sounds. EXTREMITIES: Right knee has an island dressing in place which is clean and dry with no signs of infection. Minimal erythema distally. Pulses are strong. Capillary refill is brisk on the right lower extremity compared to the left. NEUROLOGIC: She is alert and oriented times three. Facial features were symmetrical. Extraocular movements are within normal limits. No notable nystagmus. She does continue to have a mild aphasia that is at her baseline status according to her . Cranial nerves II-XII are grossly intact. LABORATORY: No laboratory. No microbiology. RADIOLOGY: Pending at time of admission to [facility]. ASSESSMENT: 1. Postoperative day 4 for elective right total knee arthroplasty having failed to respond to outpatient conservative treatment measures requiring surgical intervention to assist with symptom control with surgery being performed by Dr. Jeff Kidd, orthopedic surgeon. 2. History of hypertension. 3. Previous cerebrovascular accident in 2002 with minimal residual effects. 4. History of dementia secondary to #3. 5. Chronic anxiety on medication. 6. History of hypothyroidism on supplementation. 7. History of hepatitis C under current treatment of Dr. Mcnamara in [place], [place] for the last 2 months. 8. History of gastroesophageal reflux disease. 9. History of significant pain postoperatively requiring ongoing management prior to discharge with NSAIDs and Sabine Pass with the patient showing good response. PLAN: The patient will be admitted to [facility] for ongoing physical therapy and further rehabilitation and reconditioning efforts. She will be continued on Xarelto as per protocol for an additional 7 days at 10 mg p.o. Will resume her home medications once they have been updated and verified. Will continue with pain control with [place] and supplement and augment as needed. Will anticipate at least 3 to 7 days of admission time with anticipation of discharging home to [place], [place] once stable to continue with outpatient treatment therapy which has been arranged through [facility] with further details to follow until discharge. #[id number] MTDD
[2017-08-04] MEDS: NICOTINE PATCH 14 MG TD SCH (17:12)
[2017-08-04] MEDS: CYCLOBENZAPRINE HCL 10 MG TAB PO PRN (20:10)
[2017-08-04] MEDS: ALLOPURINOL 100 MG TAB PO SCH (20:39)
[2017-08-04] MEDS: traZODone HCL 50 MG TAB PO SCH (20:39)
[2017-08-05] MEDS: HYDROcodone 10MG/APAP 325MG 1 EA TAB PO PRN ×3 (04:45→20:44)
[2017-08-05] MEDS: PANTOPRAZOLE SODIUM TAB 40 MG PO SCH (06:23)
[2017-08-05] MEDS: LEVOTHYROXINE SODIUM 0.025 MG TAB PO SCH (06:23)
[2017-08-05] MEDS: CELECOXIB 100 MG CAP PO SCH (07:57)
[2017-08-05] MEDS: CYCLOBENZAPRINE HCL 10 MG TAB PO PRN ×2 (07:58→20:44)
[2017-08-05] MEDS: amLODIPine BESYLATE 5 MG TAB PO SCH (10:17)
[2017-08-05] MEDS: DULoxetine HCL 30 MG CAP PO SCH (10:17)
[2017-08-05] MEDS: RIVAROXABAN 10 MG TAB PO SCH (10:17)
[2017-08-05] MEDS: busPIRone HCL 5 MG TAB PO SCH ×4 (10:17→20:43)
[2017-08-05] MEDS: DOCUSATE SODIUM 100 MG CAP PO SCH (10:17)
[2017-08-05] MEDS: GABAPENTIN 300 MG CAP PO SCH ×3 (10:17→20:44)
[2017-08-05] MEDS: CLOPIDOGREL 75 MG TAB PO SCH (10:19)
[2017-08-05] MEDS: ZEPATIER PO SCH (10:19)
[2017-08-05] MEDS: NICOTINE PATCH 14 MG TD SCH (17:35)
[2017-08-05] MEDS: traZODone HCL 50 MG TAB PO SCH (20:43)
[2017-08-05] MEDS: ALLOPURINOL 100 MG TAB PO SCH (20:44)
[2017-08-05 22:52] VITALS: BP 121/72; O2SAT 95
[2017-08-06] MEDS: HYDROcodone 10MG/APAP 325MG 1 EA TAB PO PRN ×2 (03:26→08:40)
[2017-08-06] MEDS: PANTOPRAZOLE SODIUM TAB 40 MG PO SCH (06:13)
[2017-08-06] MEDS: LEVOTHYROXINE SODIUM 0.025 MG TAB PO SCH (06:13)
[2017-08-06] MEDS: CELECOXIB 100 MG CAP PO SCH (07:32)
[2017-08-06] MEDS: DULoxetine HCL 30 MG CAP PO SCH (08:41)
[2017-08-06] MEDS: DOCUSATE SODIUM 100 MG CAP PO SCH (08:41)
[2017-08-06] MEDS: GABAPENTIN 300 MG CAP PO SCH (08:42)
[2017-08-06] MEDS: RIVAROXABAN 10 MG TAB PO SCH (08:42)
[2017-08-06] MEDS: CLOPIDOGREL 75 MG TAB PO SCH (08:42)
[2017-08-06] MEDS: amLODIPine BESYLATE 5 MG TAB PO SCH (08:42)
[2017-08-06] MEDS: busPIRone HCL 5 MG TAB PO SCH (08:42)
[2017-08-06] MEDS: ZEPATIER PO SCH (08:44)
[2017-08-06 10:05] VITALS: TEMP 98.1
--- NOTE | 2017-08-06 11:47 | DS ---
SUPERVISING PHYSICIAN: Jose Roberto Carrasco MD ADMISSION DIAGNOSIS: 1. Status post right total knee arthroplasty with need for further physical therapy. 2. History of hypertension. 3. History of cerebrovascular accident. 4. Dementia. 5. Chronic anxiety. 6. History of hypothyroidism. 7. History of hepatitis C. 8. History of gastroesophageal reflux disease. DISCHARGE DIAGNOSIS: 1. Status post right total knee arthroplasty with need for further physical therapy. 2. History of hypertension. 3. History of cerebrovascular accident. 4. Dementia. 5. Chronic anxiety. 6. History of hypothyroidism. 7. History of hepatitis C. 8. History of gastroesophageal reflux disease. HOSPITAL COURSE: This is a 67-year-old female who came into the hospital for an elective right total knee arthroplasty. This was done on 07/30/17. She progressed fairly well, but met criteria for [facility] admission, so this was done on 08/03/17. Over the last 3 days, she has participated in physical therapy and progressed to the point where she can be discharged. She is pretty much insistent that she does go home today, however, physical therapy states that she should be okay at home. I have written a prescription for the remaining days that she will need of her Xarelto and explained that she needs this for 5 more days starting tomorrow. In addition, I have written a prescription for rolling walker. She will be discharged today in stable condition. DISCHARGE DIET: As per previous diet prior to admission. ACTIVITY: She does get home health with physical therapy and they will be managing this. DISCHARGE MEDICATIONS: 1. Home medications. 2. Xarelto 10 mg. #[id number] [facility]
== END 2017-08-06 11:11 | disposition home health service (06) | DRG 560 ==
LOC: MS 15:35
PROVIDERS: ADMIT Nurse Practitioner Family; ATTEND Nurse Practitioner
DX: Z47.1 Aftercare following joint replacement surgery (principal); I69.354 Hemiplegia and hemiparesis following cerebral infarction affecting left non-dominant side; I10 Essential (primary) hypertension; F03.90 Unspecified dementia, unspecified severity, without behavioral disturbance, psychotic disturbance, mood disturbance, and anxiety; F41.9 Anxiety disorder, unspecified; E03.9 Hypothyroidism, unspecified; B19.20 Unspecified viral hepatitis C without hepatic coma; K21.9 Gastro-esophageal reflux disease without esophagitis; E66.9 Obesity, unspecified; F17.210 Nicotine dependence, cigarettes, uncomplicated; Z68.31 Body mass index [BMI] 31.0-31.9, adult; I69.320 Aphasia following cerebral infarction; Z96.651 Presence of right artificial knee joint